=== PATIENT | male | born 1945 | race Hispanic/Latino ===

== ENCOUNTER 2017-07-09 02:33 | Emergency (ER) | payer MEDICARE, OTHER ==
[2017-07-09] MEDS ORDERED: ORPHENADRINE CITRATE 30 MG/ML ML ONE (03:04)
[2017-07-09] MEDS ORDERED: MORPHINE SULFATE 4 MG/1ML SYG ONE ×2 (03:05→07:16)
[2017-07-09 06:15] LABS: APPEARANCE,URINE CLEAR (CLEAR); BILIRUBIN,URINE NEGATIVE (NEGATIVE); COLOR,URINE YELLOW (YELLOW); GLUCOSE, URINE (UA) NEGATIVE (NEGATIVE); KETONES,URINE NEGATIVE (NEGATIVE); LEUKOCYTE ESTERASE ,URINE NEGATIVE (NEGATIVE); NITRATE,URINE NEGATIVE (NEGATIVE); OCCULT BLOOD,URINE NEGATIVE (NEGATIVE); PROTEIN,URINE NEGATIVE (NEGATIVE); UROBILINOGEN,URINE 0.2 mg/dL (0.2-1.0)
[2017-07-09 06:24] LABS: CREATININE 0.7 mg/dL (0.5-1.5); POTASSIUM 3.9 mmol/L (3.5-5.1)
[2017-07-09 06:29] LABS: ALBUMIN 3.7 g/dL (3.5-5.0); BILIRUBIN,TOTAL 0.5 mg/dL (0.2-1.0); TOTAL PROTEIN, SERUM 7.5 g/dL (6.0-8.3)
[2017-07-09 06:42] LABS: BASOPHILS % (AUTO) 0.9 % (0.0-5.0); EOSINOPHILS % (AUTO) 1.7 % (0.0-8.0); HEMATOCRIT 37.1 % (42-54); LYMPHOCYTES % (AUTO) 24.5 % (21.0-51.0); MEAN CORPUSCULAR HEMOGLOBIN 28.7 pg (27.0-33.0); MEAN CORPUSCULAR HGB CONC 33.7 g/dL (32.0-36.0); MEAN CORPUSCULAR VOLUME 85.3 fL (79-99); MONOCYTES % (AUTO) 8.1 % (3.0-13.0); NEUTROPHILS % (AUTO) 64.8 % (40.0-77.0); PLATELET COUNT (AUTO) 178 K/uL (130-400); RED BLOOD CELL COUNT(AUTO) 4.35 MIL/uL (4.50-6.20); RED CELL DISTRIBUTION WIDTH 14.4 % (11.0-15.5); WHITE BLOOD COUNT (AUTO) 6.4 K/uL (4.8-10.8)
== END 2017-07-09 08:13 | disposition home or self-care (01) ==
LOC: EDH 02:33
DX: M54.5 Low back pain (principal); R10.32 Left lower quadrant pain; E11.40 Type 2 diabetes mellitus with diabetic neuropathy, unspecified; Z85.46 Personal history of malignant neoplasm of prostate
CPT/HCPCS: 36415; 74176; 80053; 81003; 85025; 96372 ×3; 99285; J2270 ×2; J2360

== ENCOUNTER 2020-04-18 12:09 | Inpatient (IN) | payer OTHER ==
[~2020-04-18] VITALS: Ht 175.3 cm; Wt 73.0 kg
[2020-04-18 12:51] LABS: BASOPHILS % (AUTO) 0.7 % (0.0-5.0); EOSINOPHILS % (AUTO) 1.3 % (0.0-8.0); HEMATOCRIT 25.1 % (42-54); LYMPHOCYTES % (AUTO) 26.1 % (21.0-51.0); MEAN CORPUSCULAR HEMOGLOBIN 27.7 pg (27.0-33.0); MEAN CORPUSCULAR HGB CONC 31.1 g/dL (32.0-36.0); NEUTROPHILS % (AUTO) 63.7 % (40.0-77.0); PLATELET COUNT (AUTO) 239 K/uL (130-400); RED BLOOD CELL COUNT(AUTO) 2.82 MIL/uL (4.50-6.20); RED CELL DISTRIBUTION WIDTH 13.2 % (11.0-15.5); WHITE BLOOD COUNT (AUTO) 5.4 K/uL (4.8-10.8)
[2020-04-18 13:08] LABS: CREATININE 0.8 mg/dL (0.5-1.5); POTASSIUM 4.1 mmol/L (3.5-5.1)
[2020-04-18 13:13] LABS: ALBUMIN 3.5 g/dL (3.5-5.0); BILIRUBIN,TOTAL 0.4 mg/dL (0.2-1.0); TOTAL PROTEIN, SERUM 7.4 g/dL (6.0-8.3)
[2020-04-18] MEDS ORDERED: LORAZEPAM 2 MG/ML 1 ML VIAL ONE (13:34)
[2020-04-18 15:00] LABS: INR 1.14 (0.85-1.15); PARTIAL THROMBOPLASTIN TIME 24.5 SEC (26.3-35.5); PROTHROMBIN TIME 11.8 SEC (9.6-11.6)
[2020-04-18] MEDS ORDERED: PANTOPRAZOLE 40 MG/VIAL ONE (16:20)
[2020-04-18] MEDS ORDERED: 0.9%NACL 100ML 100 ML IV ONE (16:20)
[2020-04-18] MEDS ORDERED: LORAZEPAM 2 MG/ML 1 ML VIAL IVP PRN (18:45)
[2020-04-18] MEDS ORDERED: ACETAMINOPHEN 325 MG TAB PO PRN ×2 (18:45)
[2020-04-18] MEDS ORDERED: ONDANSETRON 4MG INJ IV PRN (18:45)
[2020-04-18] MEDS ORDERED: 0.9%NACL 1000ML 1,000 ML IV ONE (18:57)
[2020-04-18 19:39] LABS: RETICULOCYTE % (AUTO) 1.65 % (0.42-2.23)
[2020-04-19] VITALS (7 sets, daily range): BP systolic 106–179; BP diastolic 59–104
[2020-04-19] MEDS: PANTOPRAZOLE 40MG INJ 80 MG in 0.9%NACL 100ML 100 ML IV SCH ×2 (01:12→20:57)
[2020-04-19] MEDS: 0.9%NACL 1000ML 1,000 ML IV SCH ×2 (01:12→20:57)
[2020-04-19] MEDS ORDERED: OCTREOTIDE ACETATE 200 MCG/ML 5 ML VIAL ONE (01:27)
[2020-04-19] MEDS ORDERED: LISI40TA9 PO (01:56)
[2020-04-19] MEDS ORDERED: MEMA5TAB42 PO (01:56)
[2020-04-19] MEDS ORDERED: ATOR40TA69 PO (01:56)
[2020-04-19] MEDS ORDERED: CLOP75TA14 PO (01:56)
[2020-04-19] MEDS ORDERED: AEC81 PO (01:56)
[2020-04-19 06:14] LABS: BASOPHILS % (AUTO) 0.7 % (0.0-5.0); EOSINOPHILS % (AUTO) 2.6 % (0.0-8.0); HEMATOCRIT 23.7 % (42-54); LYMPHOCYTES % (AUTO) 34.1 % (21.0-51.0); MEAN CORPUSCULAR HEMOGLOBIN 27.5 pg (27.0-33.0); MEAN CORPUSCULAR HGB CONC 31.6 g/dL (32.0-36.0); MEAN CORPUSCULAR VOLUME 86.8 fL (79-99); NEUTROPHILS % (AUTO) 54.2 % (40.0-77.0); PLATELET COUNT (AUTO) 216 K/uL (130-400); RED BLOOD CELL COUNT(AUTO) 2.73 MIL/uL (4.50-6.20); RED CELL DISTRIBUTION WIDTH 13.1 % (11.0-15.5); WHITE BLOOD COUNT (AUTO) 5.4 K/uL (4.8-10.8)
[2020-04-19 06:29] LABS: ALBUMIN 3.2 g/dL (3.5-5.0); BILIRUBIN,TOTAL 0.5 mg/dL (0.2-1.0); CREATININE 0.7 mg/dL (0.5-1.5); POTASSIUM 3.6 mmol/L (3.5-5.1); TOTAL PROTEIN, SERUM 6.7 g/dL (6.0-8.3)
[2020-04-19] MEDS ORDERED: OCTREOTIDE ACETATE 1,250 MCG in 0.9% NACL 250ML 250 ML IV SCH (07:00)
[2020-04-19] MEDS ORDERED: LISINOPRIL 40 MG TABLET PO SCH (09:00)
[2020-04-19 10:01] LABS: HEMATOCRIT 23.8 % (42-54)
[2020-04-19] MEDS: INSULIN HUMULIN R 100 UNIT/ML 3ML SQ SCH ×3 (11:30→20:56)
[2020-04-19] MEDS: MEMANTINE HCL 5 MG TABLET PO SCH ×2 (11:33→20:56)
[2020-04-19 16:33] LABS: HEMATOCRIT 25.4 % (42-54)
[2020-04-19] MEDS ORDERED: ATORVASTATIN 40 MG TABLET PO SCH (21:00)
[2020-04-20 04:00] VITALS: BP 128/75
[2020-04-20] MEDS: INSULIN HUMULIN R 100 UNIT/ML 3ML SQ SCH (05:36)
[2020-04-20] MEDS ORDERED: HALOPERIDOL INJ 5 MG/ML VIAL IM SCH (10:45)
== END 2020-04-20 14:47 | disposition left against medical advice (07) | DRG 378 ==
LOC: EDH 12:09 → EDHIP 18:34 → 3CH 21:57 → 3DH 04-19 19:42
PROVIDERS: ADMIT Internal Medicine; ATTEND Internal Medicine
DX: K92.2 Gastrointestinal hemorrhage, unspecified (principal); D62 Acute posthemorrhagic anemia; F03.90 Unspecified dementia, unspecified severity, without behavioral disturbance, psychotic disturbance, mood disturbance, and anxiety; Z79.01 Long term (current) use of anticoagulants; Z90.79 Acquired absence of other genital organ(s); Z85.46 Personal history of malignant neoplasm of prostate; Z82.0 Family history of epilepsy and other diseases of the nervous system; I10 Essential (primary) hypertension; Z20.822 Contact with and (suspected) exposure to COVID-19; E11.51 Type 2 diabetes mellitus with diabetic peripheral angiopathy without gangrene
CPT/HCPCS: 36415; 74176; 80053; 82270; 82948; 83036; 85014; 85018; 85025; 85045; 85610; 85730; 86850; 86900; 86901; 87426; C9113; G0378; J1630; J2060; J2354; J2405; J7030; U0003

== ENCOUNTER 2021-03-26 19:27 | Emergency (ER) | payer OTHER ==
[~2021-03-26] VITALS: Ht 175.3 cm; Wt 77.6 kg
[~2021-03-26 19:27] MED LIST: AEC81 PO; ATOR40TA69 PO; CLOP75TA14 PO; LISI40TA9 PO; MEMA5TAB42 PO
[2021-03-26 20:00] LABS: BASOPHILS % (AUTO) 0.3 % (0.0-5.0); HEMATOCRIT 41.3 % (42-54); LYMPHOCYTES % (AUTO) 11.7 % (21.0-51.0); MEAN CORPUSCULAR HEMOGLOBIN 26.9 pg (27.0-33.0); MEAN CORPUSCULAR VOLUME 84.1 fL (79-99); MONOCYTES % (AUTO) 1.4 % (3.0-13.0); PLATELET COUNT (AUTO) 355 K/uL (130-400); RED BLOOD CELL COUNT(AUTO) 4.91 MIL/uL (4.50-6.20); RED CELL DISTRIBUTION WIDTH 13.1 % (11.0-15.5); WHITE BLOOD COUNT (AUTO) 7.2 K/uL (4.8-10.8)
[2021-03-26 20:11] LABS: CREATININE 0.8 mg/dL (0.5-1.5); POTASSIUM 3.3 mmol/L (3.5-5.1)
[2021-03-26 20:23] LABS: ALBUMIN 3.1 g/dL (3.5-5.0); BILIRUBIN,TOTAL 0.7 mg/dL (0.2-1.0); TOTAL PROTEIN, SERUM 8.5 g/dL (6.0-8.3)
[2021-03-26 22:07] VITALS: BP 144/89
== END 2021-03-26 22:25 | disposition home or self-care (01) ==
LOC: EDH 19:27
DX: U07.1 COVID-19 (principal); F03.90 Unspecified dementia, unspecified severity, without behavioral disturbance, psychotic disturbance, mood disturbance, and anxiety; M62.81 Muscle weakness (generalized); I10 Essential (primary) hypertension; Z79.82 Long term (current) use of aspirin; Z79.899 Other long term (current) drug therapy
CPT/HCPCS: 36415; 71045; 80053; 84484; 85025; 93005

== ENCOUNTER 2021-05-08 15:58 | Emergency (ER) | payer OTHER ==
[~2021-05-08] VITALS: Ht 180.3 cm; Wt 83.5 kg
[2021-05-08 18:45] LABS: BASOPHILS % (AUTO) 0.6 % (0.0-5.0); EOSINOPHILS % (AUTO) 1.1 % (0.0-8.0); HEMATOCRIT 31.8 % (42-54); LYMPHOCYTES % (AUTO) 15.7 % (21.0-51.0); MEAN CORPUSCULAR HEMOGLOBIN 27.1 pg (27.0-33.0); MEAN CORPUSCULAR HGB CONC 31.4 g/dL (32.0-36.0); MEAN CORPUSCULAR VOLUME 86.2 fL (79-99); MONOCYTES % (AUTO) 6.7 % (3.0-13.0); NEUTROPHILS % (AUTO) 75.2 % (40.0-77.0); PLATELET COUNT (AUTO) 218 K/uL (130-400); RED BLOOD CELL COUNT(AUTO) 3.69 MIL/uL (4.50-6.20); RED CELL DISTRIBUTION WIDTH 15.7 % (11.0-15.5); WHITE BLOOD COUNT (AUTO) 8.9 K/uL (4.8-10.8)
[2021-05-08 18:55] LABS: CREATININE 0.7 mg/dL (0.5-1.5); POTASSIUM 3.7 mmol/L (3.5-5.1)
[2021-05-08] MEDS ORDERED: ACET-66 PO (19:21)
[2021-05-08] MEDS ORDERED: CLON0.1T PO (19:21)
[2021-05-08 19:26] VITALS: BP 149/71
[2021-05-08] MEDS ORDERED: CLONIDINE HCL 0.2 MG TABLET PO ONE (19:30)
== END 2021-05-08 19:38 | disposition home or self-care (01) ==
LOC: EDH 15:58
DX: S00.81XA Abrasion of other part of head, initial encounter (principal); G30.9 Alzheimer's disease, unspecified; F02.80 Dementia in other diseases classified elsewhere, unspecified severity, without behavioral disturbance, psychotic disturbance, mood disturbance, and anxiety; M94.0 Chondrocostal junction syndrome [Tietze]; I10 Essential (primary) hypertension; M25.561 Pain in right knee; M25.562 Pain in left knee; Z79.82 Long term (current) use of aspirin; Z79.899 Other long term (current) drug therapy; E78.00 Pure hypercholesterolemia, unspecified; Z85.46 Personal history of malignant neoplasm of prostate; Z98.890 Other specified postprocedural states; W01.0XXA Fall on same level from slipping, tripping and stumbling without subsequent striking against object, initial encounter; Y93.01 Activity, walking, marching and hiking; Y92.89 Other specified places as the place of occurrence of the external cause; Y99.8 Other external cause status
CPT/HCPCS: 36415; 70450; 71101; 72125; 80048; 84484; 85025; 93005

== ENCOUNTER 2021-12-16 10:49 | Emergency (ER) | payer OTHER ==
[~2021-12-16 10:49] MED LIST changes: +ACET-66 PO; +CLON0.1T PO
[2021-12-16 11:15] LABS: BASOPHILS % (AUTO) 0.4 % (0.0-5.0); EOSINOPHILS % (AUTO) 0.3 % (0.0-8.0); HEMATOCRIT 38.4 % (42-54); LYMPHOCYTES % (AUTO) 11.1 % (21.0-51.0); MEAN CORPUSCULAR HEMOGLOBIN 28.3 pg (27.0-33.0); MEAN CORPUSCULAR HGB CONC 32.6 g/dL (32.0-36.0); MEAN CORPUSCULAR VOLUME 86.9 fL (79-99); MONOCYTES % (AUTO) 6.4 % (3.0-13.0); NEUTROPHILS % (AUTO) 81.2 % (40.0-77.0); PLATELET COUNT (AUTO) 178 K/uL (130-400); RED BLOOD CELL COUNT(AUTO) 4.42 MIL/uL (4.50-6.20); RED CELL DISTRIBUTION WIDTH 14.9 % (11.0-15.5); WHITE BLOOD COUNT (AUTO) 10.6 K/uL (4.8-10.8)
[2021-12-16 11:20] LABS: CREATININE 0.9 mg/dL (0.5-1.5)
[2021-12-16 11:24] LABS: ALBUMIN 3.4 g/dL (3.5-5.0); TOTAL PROTEIN, SERUM 7.3 g/dL (6.0-8.3)
[2021-12-16] MEDS ORDERED: MAG/ALUM/SIMETH 30 ML UDCUP ONE (11:35)
[2021-12-16] MEDS ORDERED: LIDOCAINE HCL 2% VISCOUS 15 ML UDCUP ONE (11:35)
[2021-12-16] MEDS ORDERED: LIDOCAINE HCL 2% VISCOUS 15 ML UDCUP PO ONE (12:00)
[2021-12-16] MEDS ORDERED: MAG/ALUM/SIMETH 30 ML UDCUP PO ONE (12:00)
[2021-12-16] MEDS ORDERED: DICYCLOMINE HCL 10 MG/5 ML ML PO ONE (12:00)
[2021-12-16] MEDS ORDERED: PANT40TA55 PO (12:36)
[2021-12-16 12:40] VITALS: BP 140/68
== END 2021-12-16 12:56 | disposition home or self-care (01) ==
LOC: EDH 10:49
DX: K21.9 Gastro-esophageal reflux disease without esophagitis (principal); F03.90 Unspecified dementia, unspecified severity, without behavioral disturbance, psychotic disturbance, mood disturbance, and anxiety; E78.00 Pure hypercholesterolemia, unspecified; I10 Essential (primary) hypertension; Z98.890 Other specified postprocedural states; Z79.82 Long term (current) use of aspirin
CPT/HCPCS: 36415; 80053; 83690; 84484; 85025; 93005

== ENCOUNTER 2022-03-24 13:41 | Emergency (ER) | payer OTHER ==
[~2022-03-24] VITALS: Ht 172.7 cm; Wt 77.1 kg
[~2022-03-24 13:41] MED LIST changes: -ACET-66 PO; -CLON0.1T PO; +CLOP-31 PO; -CLOP75TA14 PO
[2022-03-24 14:36] LABS: CREATININE 0.5 mg/dL (0.5-1.5)
[2022-03-24 14:41] LABS: POTASSIUM 2.8 mmol/L (3.5-5.1)
[2022-03-24] MEDS ORDERED: POTASSIUM BICARB/CIT AC 25 MEQ TABLET.EFF PO ONE (15:00)
[2022-03-24 16:15] LABS: CREATININE 0.5 mg/dL (0.5-1.5); POTASSIUM 3.1 mmol/L (3.5-5.1)
[2022-03-24 16:25] VITALS: BP 119/65
[2022-03-24] MEDS ORDERED: POTA-192 PO (16:29)
== END 2022-03-24 18:04 | disposition home or self-care (01) ==
LOC: EDH 13:41
DX: E87.6 Hypokalemia (principal); E11.9 Type 2 diabetes mellitus without complications; E78.00 Pure hypercholesterolemia, unspecified; I10 Essential (primary) hypertension; Z79.82 Long term (current) use of aspirin; Z79.899 Other long term (current) drug therapy; Z88.5 Allergy status to narcotic agent; Z85.46 Personal history of malignant neoplasm of prostate; Z98.890 Other specified postprocedural states; Z85.01 Personal history of malignant neoplasm of esophagus
CPT/HCPCS: 36415; 80048

== ENCOUNTER 2022-05-24 10:00 | Day surgery (SDC) | payer OTHER ==
[~2022-05-24] VITALS: Ht 175.3 cm; Wt 80.7 kg
[~2022-05-24 10:00] MED LIST changes: -ATOR40TA69 PO; -CLOP-31 PO; -LISI40TA9 PO; +MEMA10TA55 PO; -MEMA5TAB42 PO; +OMEP20CA12 PO
[2022-05-24 11:30] LABS: HEMATOCRIT 36.4 % (42-54); MEAN CORPUSCULAR HEMOGLOBIN 27.6 pg (27.0-33.0); MEAN CORPUSCULAR HGB CONC 31.6 g/dL (32.0-36.0); MEAN CORPUSCULAR VOLUME 87.5 fL (79-99); PLATELET COUNT (AUTO) 269 K/uL (130-400); RED BLOOD CELL COUNT(AUTO) 4.16 MIL/uL (4.50-6.20); RED CELL DISTRIBUTION WIDTH 17.4 % (11.0-15.5); WHITE BLOOD COUNT (AUTO) 9.9 K/uL (4.8-10.8)
[2022-05-24 11:44] LABS: INR 1.14 (0.85-1.15); PROTHROMBIN TIME 12.3 SEC (9.6-11.6)
[2022-05-24 11:45] LABS: PARTIAL THROMBOPLASTIN TIME 27.8 SEC (26.3-35.5)
[2022-05-24 11:47] LABS: ALBUMIN 2.3 g/dL (3.5-5.0); CREATININE 0.7 mg/dL (0.5-1.5); POTASSIUM 3.1 mmol/L (3.5-5.1); TOTAL PROTEIN, SERUM 6.7 g/dL (6.0-8.3)
[2022-05-24] MEDS ORDERED: PROPOFOL 10 MG/ML 20ML VIAL IV ONE (11:59)
[2022-05-24 12:06] VITALS: BP 91/53
[2022-05-24 13:10] LABS: BAND NEUTROPHILS % (MANUAL) 23 % (0-2); LYMPHOCYTES % (MANUAL) 11 % (22-44); MAN.DIFF COMMENT-IMPRESSION MANUAL DIFFERENTIAL; MONOCYTES % (MANUAL) 4 % (2-9); PLATELET MORPHOLOGY COMMENT ADEQUATE; SEGMENTED NEUTROPHILS % 62 % (40-70)
[2022-05-24] MEDS ORDERED: MIDAZOLAM HCL 1 MG/ML 2ML VIAL ONE ×2 (14:19→14:28)
[2022-05-24] MEDS ORDERED: FENTANYL CITRATE PF 50 MCG/1 ML 2ML VIAL ONE (14:26)
[2022-05-24] MEDS ORDERED: CEFAZOLIN SODIUM 1 GM VIAL ONE (14:29)
[2022-05-24 17:06] VITALS: BP 91/53
== END 2022-05-24 15:23 | disposition home or self-care (01) ==
LOC: ENDO 10:00
PROVIDERS: ATTEND Internal Medicine Gastroenterology
DX: R63.4 Abnormal weight loss (principal); Z20.822 Contact with and (suspected) exposure to COVID-19; R13.10 Dysphagia, unspecified; K21.00 Gastro-esophageal reflux disease with esophagitis, without bleeding; K44.9 Diaphragmatic hernia without obstruction or gangrene; K29.50 Unspecified chronic gastritis without bleeding; K70.31 Alcoholic cirrhosis of liver with ascites; I10 Essential (primary) hypertension; E78.5 Hyperlipidemia, unspecified; I25.10 Atherosclerotic heart disease of native coronary artery without angina pectoris; E11.9 Type 2 diabetes mellitus without complications; Z85.46 Personal history of malignant neoplasm of prostate; Z87.19 Personal history of other diseases of the digestive system; Z79.899 Other long term (current) drug therapy; Z79.82 Long term (current) use of aspirin; Z79.01 Long term (current) use of anticoagulants; Z80.1 Family history of malignant neoplasm of trachea, bronchus and lung; Z80.8 Family history of malignant neoplasm of other organs or systems
CPT/HCPCS: 43246; 80053; 85025; 85610; 85730; 87426; 36415; 93005; J3010; J0690; J2250 ×2; A4620; A4215 ×2; A4223; A4657; A7002; A4222; A4221; A4663; A4606; 99152; 99153; J2704